=== PATIENT | female | born 1980 | race Caucasian/White ===

== ENCOUNTER 2017-01-17 12:21 | Emergency (ER) | payer OTHER ==
[2017-01-17 12:49] VITALS: BP 113/70; PULSE 76; RESP 16; TEMP 97.9; O2SAT 96
[2017-01-17] MEDS ORDERED: FAMOTIDINE 20 MG TAB PO ONE (13:02)
[2017-01-17] MEDS ORDERED: predniSONE 20 MG TAB PO ONE (13:02)
--- NOTE | 2017-01-17 13:05 | EDPHY ---
H & P Stated Complaint: Rash-hives to bilat hands Saturday, Sat and today body. Denies resp distress Time Seen by Provider: 01/17/17 12:58 HPI/ROS: CHIEF COMPLAINT: urticaria HISTORY OF PRESENT ILLNESS: The patient is a 36-year-old female who has had urticaria for the last 2 days. She is unsure of what the trigger is except that she has changed scents with her laundry detergent. No new foods or medications. She has been taking Benadryl every 4 5 hours. She states that it works in the rash completely goes away but then returned after about 2-3 hours. She is currently symptom free after taking Benadryl this morning. No fevers. No difficulty breathing. No GI symptoms. REVIEW OF SYSTEMS: Constitutional: denies: chills, fever, recent illness, recent injury EENTM: denies: blurred vision, double vision, nose congestion Respiratory: denies: cough, shortness of breath Cardiac: denies: chest pain, irregular heart rate, lightheadedness, palpitations Gastrointestinal/Abdominal: denies: abdominal pain, diarrhea, nausea, vomiting, blood streaked stools Genitourinary: denies: dysuria, frequency, hematuria, pain Musculoskeletal: denies: joint pain, muscle pain Skin: See HPI Neurological: denies: headache, numbness, paresthesia, tingling, dizziness, weakness Hematologic/Lymphatic: denies: blood clots, easy bleeding, easy bruising Immunologic/allergic: denies: HIV/AIDS, transplant EXAM: GENERAL: Well-appearing, well-nourished and in no acute distress. HEAD: Atraumatic, normocephalic. EYES: Pupils equal round and reactive to light, extraocular movements intact, sclera anicteric, conjunctiva are normal. ENT: TMs normal, nares patent, oropharynx clear without exudates. Moist mucous membranes. NECK: Normal range of motion, supple without lymphadenopathy or JVD. LUNGS: Breath sounds clear to auscultation bilaterally and equal. No wheezes rales or rhonchi. HEART: Regular rate and rhythm without murmurs, rubs or gallops. ABDOMEN: Soft, nontender, normoactive bowel sounds. No guarding, no rebound. No masses appreciated. BACK: No CVA tenderness, no spinal tenderness, step-offs or deformities EXTREMITIES: Normal range of motion, no pitting or edema. No clubbing or cyanosis. NEUROLOGICAL: Cranial nerves II through XII grossly intact. Normal speech, normal gait. 5/5 strength, normal movement in all extremities, normal sensation PSYCH: Normal mood, normal affect. SKIN: Warm, dry, normal turgor, no visible rashes or lesions. Source: Patient Exam Limitations: No limitations - Personal History LMP (Females 10-55): 15-21 Days Ago - Medical/Surgical History Hx Asthma: No Hx Chronic Respiratory Disease: No Hx Diabetes: No Hx Cardiac Disease: No Hx Renal Disease: No Hx Cirrhosis: No Hx Alcoholism: No Hx HIV/AIDS: No Hx Splenectomy or Spleen Trauma: No Other PMH: Surg-C SEC X 2, TUBAL LIGATION. Med hx-none - Family History Significant Family History: No pertinent family hx - Social History Smoking Status: Former smoker Alcohol Use: Sober Drug Use: None Constitutional: Initial Vital Signs Temperature (C) 36.6 C 01/17/17 12:45 Heart Rate 76 01/17/17 12:45 Respiratory Rate 16 01/17/17 12:45 Blood Pressure 113/70 01/17/17 12:45 O2 Sat (%) 96 01/17/17 12:45 O2 Delivery Mode Room Air Allergies/Adverse Reactions: No Known Allergies Allergy (Verified 01/17/17 12:43) Home Medications: Medication Instructions Recorded Famotidine [Pepcid 20 MG (OTC)] 20 mg PO BID #30 tab 01/17/17 predniSONE 60 mg PO DAILY #9 tab 01/17/17 Medical Decision Making ED Course/Re-evaluation: The patient has pictures on her phone of her urticaria from this morning. It resolved completely with Benadryl. I will add steroids and Pepcid. We discussed medication regimen. We also discussed follow-up with an animal husbandry professor. We discussed indications for returning to the emergency department. Differential Diagnosis: Partial list of the Differential diagnosis considered include but were not limited to; urticaria, allergic reaction and although unlikely based on the history and physical exam, I also considered anaphylaxis, cellulitis, sepsis. I discussed these differential diagnoses and the plan with the patient as well as the usual and expected course. The patient understands that the diagnosis is provisional and that in medicine we are not always correct and that further workup is often warranted. Usual and customary warnings were given. All of the patient's questions were answered. The patient was instructed to return to the emergency department should the symptoms at all worsen or return, otherwise to followup with the physician as we discussed. - Data Points Medications Given: Discontinued Medications Famotidine (Pepcid) 40 mg PO EDNOW ONE Stop: 01/17/17 13:03 Last Admin: 01/17/17 13:09 Dose: 40 mg Prednisone (Prednisone) 60 mg PO EDNOW ONE Stop: 01/17/17 13:03 Last Admin: 01/17/17 13:09 Dose: 60 mg Departure - Departure Disposition: Home, Routine, Self-Care Clinical Impression: Urticaria Condition: Fair Instructions: Urticaria (ED) Referrals: Stephane Parker MD [Medical Doctor] - As per Instructions Prescriptions: Famotidine [Pepcid 20 MG (OTC)] 20 mg PO BID #30 tab predniSONE 60 mg PO DAILY #9 tab
== END 2017-01-17 13:10 | disposition home or self-care (01) ==
LOC: CED 12:21
DX: L50.9 Urticaria, unspecified (principal); Z87.891 Personal history of nicotine dependence

== ENCOUNTER 2017-05-24 14:16 | Emergency (ER) | payer OTHER ==
--- NOTE | 2017-05-24 14:27 | CPEKG ---
Heart Rate: 65 RR Interval: 923 P-R Interval: 156 QRSD Interval: 86 QT Interval: 444 QTC Interval: 462 P [place]: 24 QRS [place]: 64 T Wave [place]: 17 EKG Severity - BORDERLINE ECG - EKG Impression: SINUS RHYTHM EKG Impression: BORDERLINE Q WAVES IN INFERIOR LEADS EKG Impression: INFERIOR Q WAVES, PROBABLY NORMAL VARIATION Electronically Signed By: Jignesh Leyva 24-May-2017 18:42:21
[2017-05-24 14:29] VITALS: RESP 18; TEMP 98.6
[2017-05-24] MEDS ORDERED: NS 500 ML IV ONE (14:33)
[2017-05-24] MEDS ORDERED: ASPIRIN 81 MG CHEWABLE TAB PO ONE (14:33)
--- NOTE | 2017-05-24 14:37 | EDPHY ---
H & P Smoking Status: Former smoker Time Seen by Provider: 05/24/17 14:33 HPI/ROS: CHIEF COMPLAINT: Chest pain HISTORY OF PRESENT ILLNESS: Patient is a 37-year-old female who presents emergency department with intermittent chest pain. Patient states her symptoms started approximately 3 weeks ago. She initially had episodes of chest pain approximately 1 today. Last few days it is happen more frequently. Today her pain has been constant since 145. She describes substernal chest pain that moved over to her left breast. She has mild shortness of breath. She has had a cough since May. She denies fevers or chills. No nausea or vomiting. No abdominal pain. No leg pain or swelling. No recent travel. The patient states her mother just underwent open heart surgery. She previous smoked but has quit. REVIEW OF SYSTEMS: My complete review of systems is negative except as mentioned in the HPI. ( Asmita Rosas) Past Medical/Surgical History: Denies Past surgical history: Negative Social history: Patient does not smoke. (Asmita Rosas) Physical Exam: Vitals noted GENERAL: Well-appearing, in no acute distress, alert. HEENT: Eyes normal to inspection, normal pharynx, no signs of dehydration. NECK: No thyromegaly, no lymphadenopathy, supple. RESPIRATORY: Clear to auscultation bilaterally, no rales, rhonchi or wheezing. CVS: Regular rate and rhythm, no rubs, murmurs, or gallops. ABDOMEN: Soft, minimal epigastric tenderness to palpation with no rebound or guarding, nondistended, no organomegaly. BACK: Normal to inspection, no CVA tenderness. SKIN: Normal color, no rash, warm, dry. No pallor. EXTREMITIES: No pedal edema, no calf tenderness, no Homans sign or cords, no joint swelling. NEURO/PSYCH: Alert and oriented, normal mood and affect, normal motor sensory exam. (Asmita Rosas) Constitutional: Initial Vital Signs Temperature (C) 37.0 C 05/24/17 14:26 Heart Rate 77 05/24/17 14:26 Respiratory Rate 18 05/24/17 14:26 Blood Pressure 123/67 H 05/24/17 14:26 O2 Sat (%) 98 05/24/17 14:26 O2 Delivery Mode Room Air Allergies/Adverse Reactions: No Known Allergies Allergy (Verified 05/24/17 14:26) Home Medications: Medication Instructions Recorded Albuterol [Proventil] 17 gm IH Q4-6PRN PRN #1 aerosol 05/24/17 Medical Decision Making - Diagnostics Imaging Results: Imaging Impressions Chest X-Ray 05/24/17 14:34 Impression: Nothing abnormal identified. Consider a routine PA and lateral chest , when the patient is clinically able. Chest/Thorax CTA 05/24/17 15:04 Impression: 1. No visible pulmonary embolus. 2. Polygonal posterior right upper lobe nodule, almost certainly benign. If the patient is a smoker or is high risk, unenhanced low dose chest CT for follow up in 12 months is considered optional. Otherwise, no further follow up is needed per Fleischner Society criteria. Findings discussed with Dr. Jignesh Leyva on 05/24/2017 at 1555. ED Course/Re-evaluation: In the emergency department I discussed possible etiologies with the patient. I answered all her questions. She was given aspirin 324 mg orally. An IV was placed. Laboratory studies, EKG and chest x-ray were obtained. Sinus rhythm at 65. Normal axis. Normal intervals. No ST or T-wave abnormalities. There are Q-waves in II, III, aVF. I compared this with the EKG by 2013. Q-waves were present at that time. 1437: A PA and lateral was ordered. However there was the malfunction in the x -ray suite. A portable was performed. Chest x-ray: No acute disease noted. The CBC showed normal white count. Patient had elevated D-dimer 0.62. Based on the elevated D-dimer CT angiogram was ordered. I discussed this with the patient answered all her questions. 1500: The patient is signed out to Dr. Leyva at change of shift. (Asmita Rosas) 4:00 p.m. we discussed the patient's CT results. She states that she feels completely well. She is nontoxic appearing. Vital signs are stable. Her lab work is also reassuring. She declines further workup or testing is eager to go home. She tells me that her chest pain and headache present only when she is having a persistent cough that she seems to have coughing fits. She does have a history of asthma. No wheezing currently. Negative CT angio of her chest. I will prescribe her albuterol inhaler to take during these coughing spells. She states that she has done this in the past. She is happy with this plan. We discussed follow-up as well as indications for returning. She has an appointment with her doctor next week. (Jignesh Leyva) Differential Diagnosis: My differential includes but is not limited to ACS, acute ID, pulmonary embolus , dissection, aneurysm, myocarditis, pericarditis, pneumonia, bronchitis, GERD, pancreatitis (Asmita Rosas) - Data Points Laboratory Results: Laboratory Results 05/24/17 14:40 05/24/17 14:40 05/24/17 05/24/17 05/24/17 14:40 14:40 14:40 WBC RBC Hgb Hct MCV MCH MCHC RDW Plt Count MPV Neut % (Auto) Lymph % (Auto) [place] % (Auto) Eos % (Auto) Baso % (Auto) Nucleat RBC Rel Count Absolute Neuts (auto) Absolute Lymphs (auto) Absolute Monos (auto) Absolute Eos (auto) Absolute Basos (auto) Absolute Nucleated RBC Immature Gran % Immature Gran # D-Dimer 0.62 ug/mLFEU H ug/mLFEU (0.00-0.50) Sodium 141 mEq/L mEq/L (134-144) Potassium 4.0 mEq/L mEq/L (3.5-5.2) Chloride 105 mEq/L mEq/L (97-110) Carbon Dioxide 21 mEq/l L mEq/l (22-31) Anion Gap 15 mEq/L mEq/L (8-16) BUN 12 mg/dL mg/dL (7-23) Creatinine 1.0 mg/dL mg/dL (0.6-1.0) Estimated GFR > 60 Glucose 90 mg/dL mg/dL (70-100) Calcium 8.9 mg/dL mg/dL (8.5-10.4) Total Bilirubin 0.8 mg/dL mg/dL (0.1-1.4) Conjugated Bilirubin 0.5 mg/dL mg/dL (0.0-0.5) Unconjugated Bilirubin 0.3 mg/dL mg/dL (0.0-1.1) AST 22 IU/L IU/L (14-46) ALT 43 IU/L IU/L (9-52) Alkaline Phosphatase 58 IU/L IU/L (38-126) Troponin I < 0.012 ng/mL ng/mL (0.000-0.034) Total Protein 7.3 g/dL g/dL (6.3-8.2) Albumin 4.4 g/dL g/dL (3.5-5.0) Lipase 205 IU/L IU/L (23-300) Beta HCG, Qual NEGATIVE 05/24/17 14:40 WBC 9.08 10^3/uL 10^3/uL (3.80-9.50) RBC 4.61 10^6/uL 10^6/uL (4.18-5.33) Hgb 13.3 g/dL g/dL (12.6-16.3) Hct 38.7 % % (38.0-47.0) MCV 83.9 fL fL (81.5-99.8) MCH 28.9 pg pg (27.9-34.1) MCHC 34.4 g/dL g/dL (32.4-36.7) RDW 13.4 % % (11.5-15.2) Plt Count 243 10^3/uL 10^3/uL (150-400) MPV 10.7 fL fL (8.7-11.7) Neut % (Auto) 55.3 % % (39.3-74.2) Lymph % (Auto) 36.9 % % (15.0-45.0) [place] % (Auto) 4.4 % L % (4.5-13.0) Eos % (Auto) 2.4 % % (0.6-7.6) Baso % (Auto) 0.8 % % (0.3-1.7) Nucleat RBC Rel Count 0.0 % % (0.0-0.2) Absolute Neuts (auto) 5.02 10^3/uL 10^3/uL (1.70-6.50) Absolute Lymphs (auto) 3.35 10^3/uL H 10^3/uL (1.00-3.00) Absolute Monos (auto) 0.40 10^3/uL 10^3/uL (0.30-0.80) Absolute Eos (auto) 0.22 10^3/uL 10^3/uL (0.03-0.40) Absolute Basos (auto) 0.07 10^3/uL 10^3/uL (0.02-0.10) Absolute Nucleated RBC 0.00 10^3/uL 10^3/uL (0-0.01) Immature Gran % 0.2 % % (0.0-1.1) Immature Gran # 0.02 10^3/uL 10^3/uL (0.00-0.10) D-Dimer Sodium Potassium Chloride Carbon Dioxide Anion Gap BUN Creatinine Estimated GFR Glucose Calcium Total Bilirubin Conjugated Bilirubin Unconjugated Bilirubin AST ALT Alkaline Phosphatase Troponin I Total Protein Albumin Lipase Beta HCG, Qual Medications Given: Discontinued Medications Aspirin (Aspirin) 324 mg PO EDNOW ONE Stop: 05/24/17 14:34 Last Admin: 05/24/17 14:45 Dose: 324 mg Sodium Chloride (Ns) 500 mls @ 1,000 mls/hr IV EDNOW ONE PRN Reason: Protocol Stop: 05/24/17 15:02 Last Admin: 05/24/17 14:44 Dose: 500 mls Departure - Departure Disposition: Home, Routine, Self-Care Clinical Impression: Cough in adult Chest pain Qualifiers: Chest pain type: precordial pain Qualified Code(s): R07.2 - Precordial pain Condition: Good Instructions: Chest Pain (ED), Acute Cough (ED) Additional Instructions: Return with increasing chest pain, shortness of breath or any other concerns. Referrals: [facility] [Provider Group] - 2-3 days without fail Prescriptions: Albuterol [Proventil] 17 gm IH Q4-6PRN PRN #1 aerosol PRN Reason: Cough, Moderate
[2017-05-24 14:42] LABS: % IMMATURE GRANULYOCYTES 0.2 % (0.0-1.1); ABSOLUTE IMMATURE GRANULOCYTES 0.02 10^3/uL (0.00-0.10); ADD DIFF? NO; ADD MORPH? NO; ADD SCAN? NO; ATYPICAL LYMPHOCYTE FLAG 10 (0-99); FRAGMENT RBC FLAG 0 (0-99); HEMATOCRIT 38.7 % (38.0-47.0); HEMOGLOBIN 13.3 g/dL (12.6-16.3); LEFT SHIFT FLG 0 (0-99); LIPEMIA HEMOLYSIS FLAG 90 (0-99); MEAN CELL HEMOGLOBIN 28.9 pg (27.9-34.1); MEAN CELL HEMOGLOBIN CONCENTR. 34.4 g/dL (32.4-36.7); MEAN CELL VOLUME 83.9 fL (81.5-99.8); MEAN PLATELET VOLUME 10.7 fL (8.7-11.7); PLATELET CLUMPS FLAG 0 (0-99); PLATELET COUNT 243 10^3/uL (150-400); RED BLOOD CELL COUNT 4.61 10^6/uL (4.18-5.33); RED CELL DISTRIBUTION WIDTH 13.4 % (11.5-15.2)
[2017-05-24 14:58] LABS: ALANINE AMINOTRANSFERASE 43 IU/L (9-52); ALBUMIN 4.4 g/dL (3.5-5.0); ALKALINE PHOSPHATASE 58 IU/L (38-126); ANION GAP 15 mEq/L (8-16); ASPARTATE AMINOTRANSFERASE 22 IU/L (14-46); BILIRUBIN,TOTAL 0.8 mg/dL (0.1-1.4); BILIRUBIN-CONJUGATED 0.5 mg/dL (0.0-0.5); BILIRUBIN-UNCONJUGATED 0.3 mg/dL (0.0-1.1); CALCIUM 8.9 mg/dL (8.5-10.4); CARBON DIOXIDE 21 mEq/l (22-31); CHLORIDE 105 mEq/L (97-110); GLOMERULAR FILTRATION RATE > 60; GLUCOSE 90 mg/dL (70-100); SODIUM 141 mEq/L (134-144); TOTAL PROTEIN 7.3 g/dL (6.3-8.2)
[2017-05-24 15:10] LABS: TROPONIN I < 0.012 ng/mL (0.000-0.034)
[2017-05-24] MEDS ORDERED: IOPAMIDOL (ISOVUE 370) 100 ML BTL IV ONE (15:22)
[2017-05-24 15:24] VITALS: PULSE 75
[2017-05-24 19:25] VITALS: BP 124/72; O2SAT 96
== END 2017-05-24 16:11 | disposition home or self-care (01) ==
LOC: CED 14:16
DX: R07.2 Precordial pain (principal); R05 Cough; E86.9 Volume depletion, unspecified; Z87.891 Personal history of nicotine dependence
CPT/HCPCS: 71010-PO; 71275-PO; 80048-PO; 80076-PO; 83690-PO; 84484-PO; 84703-PO; 85025-PO; 85378-PO; Q9967

== ENCOUNTER → 2017-11-04 | Outpatient (CLI) | payer OTHER | LOC: BRMIMAGING 08:55 | PROVIDERS: ATTEND Family Medicine | DX: N64.4 Mastodynia (principal) | CPT/HCPCS: 76641-PO ==

== ENCOUNTER 2018-03-04 15:50 | Emergency (ER) | payer OTHER ==
[2018-03-04 15:59] VITALS: BP 123/77
[2018-03-04] MEDS ORDERED: IBUPROFEN 600 MG TAB PO ONE (16:13)
--- NOTE | 2018-03-04 16:19 | EDPHY ---
H & P Time Seen by Provider: 03/04/18 15:58 HPI/ROS: This patient complains of an achy lump to her left neck posterior to the sternocleidomastoid muscle. She noticed this over the past 24 hr. She describes it as achy in nature. She has not taken any medication for the pain. She notes no exacerbating factors. She has associated skin lesions to the posterior neck for about the past 6 months or so she estimates. She reports that the skin lesions are slightly burning and itching at times. She does not think they have changed much over the past week or 2. She came in by private car for evaluation. She is concerned about potential cancer because she was noted to have had a lump in the left breast on mammogram and ultrasound with scheduled recheck in 3 months and also a calcified right upper lung nodule on chest CT with scheduled recheck 1 year after the initial study that was performed on 05/24/2017. ROS: Constitutional: No fevers or chills. No fatigue. No other complaints HEENT: No sore throat. No ear pain. No change in her voice. No other complaints Neuro: No headache numbness or tingling Pulmonary: No shortness of breath or chest pain Cardiovascular: No lightheadedness Lymph: No lumps elsewhere on her body besides the breast in the neck. Integumentary: No skin rash or lesions other than the posterior neck as mentioned in HPI. 10 point ROS is otherwise negative Past Medical/Surgical History: Breast lump and lung calcification as per HPI. Otherwise healthy Smoking Status: Former smoker Physical Exam: General Appearance: Alert, no distress. Eyes: Pupils equal and round no pallor or injection. ENT, Mouth: Mucous membranes moist. Oropharynx is clear. Ears: Clear bilaterally Neck: Patient has swelling posterior to the left sternocleidomastoid muscle approximately 1.5 cm mobile non fluctuant no overlying erythema or warmth to touch Respiratory: There are no retractions, lungs are clear to auscultation. Cardiovascular: Regular rate and rhythm. No murmur gallop or rub Gastrointestinal: Abdomen is soft and nontender, no masses, bowel sounds normal. Neurological: GCS 15. No focal deficits are appreciated Skin: Warm and dry, the patient has 2 round erythematous lesions with desquamation superficially left more than right posterior neck 1.5 cm in diameter. No other skin lesions are noted. Musculoskeletal: Neck is supple nontender. Extremities are symmetrical, full range of motion. Psychiatric: Mood and affect normal DIFFERENTIAL DIAGNOSIS: After history and physical exam differential diagnosis was considered for tinea corpus, eczema, contact dermatitis a posterior neck, likely regional lymphadenopathy in response to tinea corporis. Doubt lymphoma, doubt brachial cleft cyst, abscess or other Constitutional: Initial Vital Signs Temperature (C) 37.1 C 03/04/18 15:55 Heart Rate 90 03/04/18 15:55 Respiratory Rate 16 03/04/18 15:55 Blood Pressure 123/77 H 03/04/18 15:55 O2 Sat (%) 97 03/04/18 15:55 O2 Delivery Mode Room Air Allergies/Adverse Reactions: No Known Allergies Allergy (Verified 03/04/18 15:59) Home Medications: Medication Instructions Recorded Albuterol [Proventil] 17 gm IH Q4-6PRN PRN #1 aerosol 05/24/17 MDM/Departure - MDM Medications Given: Discontinued Medications Ibuprofen (Motrin) 600 mg PO EDNOW ONE Stop: 03/04/18 16:14 Last Admin: 03/04/18 16:33 Dose: 600 mg ED Course/Re-evaluation: Ibuprofen p.o. Phlebotomy for CBC Patient's CBC is normal. I reviewed patient's normal CBC results and my clinical impression of tinea corporis causing posterior cervical lymphadenopathy. I explained the physiology behind this suggested a course of Lotrimin Ultra twice daily for the next few weeks for the tinea corporis and ibuprofen and Tylenol for the lymphadenopathy. She will follow up with primary care physician for any ongoing symptoms. She understands the need to return for any significant worsening of symptoms to the emergency department. - Depart Disposition: Home, Routine, Self-Care Clinical Impression: Posterior cervical lymphadenopathy, Tinea corporis Condition: Good Instructions: Tinea Corporis (ED), Lymphadenopathy (ED) Additional Instructions: Diagnosis: 1. Posterior cervical lymphadenopathy 2. Tinea corporis ("ring-worm ") on posterior neck Or swollen lymph node is likely attributable to the tinea corporis. Plan: Ibuprofen for discomfort if needed Tylenol in addition if needed. Do not exceed 600 mg per 6 hr of the ibuprofen and do not exceed 3000 mg in 24 hr of the Tylenol. This pickup Lotrimin Ultra antifungal cream from the pharmacy [id number] and apply this 2 times a day until the rash in the back of her neck resolved. It may improve within a few days but may take up to 3 weeks of steady application before it clears. Follow-up with primary care physician for any ongoing symptoms Return emergency department for any significant worsening despite treatment plan. Referrals: Chris Jones DO [Primary Care Provider] - As per Instructions
== END 2018-03-04 17:06 | disposition home or self-care (01) ==
LOC: CED 15:50
DX: R59.1 Generalized enlarged lymph nodes (principal); B35.4 Tinea corporis; Z87.891 Personal history of nicotine dependence

== ENCOUNTER → 2018-05-30 | Outpatient (CLI) | payer OTHER | LOC: CIMAGING 13:06 | PROVIDERS: ATTEND Family Medicine | DX: R05 Cough (principal); R92.8 Other abnormal and inconclusive findings on diagnostic imaging of breast | CPT/HCPCS: 71046-PO ==

== ENCOUNTER → 2018-11-04 | Outpatient (CLI) | payer OTHER | LOC: CIMAGING 10:43 | PROVIDERS: ATTEND Family Medicine | DX: R05 Cough (principal) | CPT/HCPCS: 71046-PO ==

== ENCOUNTER 2018-11-10 08:22 | Day surgery (SDC) | payer OTHER ==
[2018-11-10] MEDS ORDERED: fentaNYL 100 MCG/2 ML INJ IVP ONE ×2 (08:54→10:26)
[2018-11-10] MEDS ORDERED: NS 1,000 ML IV ONE (08:54)
[2018-11-10] MEDS ORDERED: IOPAMIDOL (ISOVUE-300) 100 ML BTL ONE (09:04)
--- NOTE | 2018-11-10 09:04 | EDPHY ---
H & P Time Seen by Provider: 11/10/18 08:24 HPI/ROS: CHIEF COMPLAINT: Abdominal pain HISTORY OF PRESENT ILLNESS: Patient states last night around 6:00 p.m. She had a relatively sudden onset of right-sided abdominal pain. She describes it initially as in the lower abdomen but now radiates to the back and the groin. She states the pain has been sharp, "really bad", constant. She has not had anything quite like this. She denies nausea, vomiting, diarrhea or constipation. She has had no fevers or chills. She was recently treated for strep throat and is still on penicillin. This was started last Saturday. She states her sore throat is better although some discomfort with swallowing. She denies dysuria, hematuria, vaginal discharge. REVIEW OF SYSTEMS: Constitutional: No fever, no chills. Eyes: No discharge. ENT: Per HPI Cardiovascular: No chest pain, no palpitations. Respiratory: No cough, no shortness of breath. Gastrointestinal: Per HPI Genitourinary: No dysuria. Musculoskeletal: No back pain. Skin: No rashes. Neurological: No headache. General Appearance: Alert, no distress. Eyes: Pupils equal and round no pallor or injection. ENT, Mouth: Mucous membranes moist. No exudates, no lymphadenopathy. Respiratory: There are no retractions, lungs are clear to auscultation. Cardiovascular: Regular rate and rhythm. Gastrointestinal: Abdomen is soft, with tenderness diffusely to the right side and some voluntary guarding with right lower quadrant palpation. Hypoactive bowel sounds. No masses or distension. Neurological: Awake, alert, cranial nerves intact, no focal neurologic deficits. Skin: Warm and dry, no rashes. Musculoskeletal: Neck is supple nontender. Extremities are symmetrical, full range of motion, no edema. Psychiatric: Patient is oriented X 3, there is no agitation. Medical/surgical history: x2, tubal ligation. Recent strep pharyngitis on penicillin. Social history: Former smoker, no drugs or alcohol. Smoking Status: Former smoker Constitutional: Initial Vital Signs Temperature (C) 36.4 C 11/10/18 08:29 Heart Rate 78 11/10/18 08:29 Respiratory Rate 16 11/10/18 08:29 Blood Pressure 124/75 H 11/10/18 08:29 O2 Sat (%) 95 11/10/18 08:29 O2 Delivery Mode Room Air Allergies/Adverse Reactions: No Known Allergies Allergy (Verified 11/10/18 08:28) Home Medications: Medication Instructions Recorded Penicillin VK 11/10/18 Medical Decision Making - Diagnostics Imaging Results: Imaging Impressions Abdomen CT 11/10/18 08:55 Impression: 1. Acute appendicitis with no visible abscess. 2. Mild hepatomegaly. 3. Borderline splenomegaly. 4. Trace left effusion. 5. Additional findings as above. Findings discussed with Vicki Lao MD 11/10/2018 at 10:06. ED Course/Re-evaluation: 10:[address] report demonstrates appendicitis, 15 mm, no abscess or free air. Discussed with patient, re-evaluation, states pain 10. Agrees for transfer and admission for likely operative intervention. 10:15 am discussed with Merlyn, for Dr. Vee who was scrubbed in in the OR. Accepted for transfer and will be taken directly to preop. Differential Diagnosis: Differential diagnosis includes but is not limited to kidney stone, appendicitis , cholecystitis, urinary tract infection. After evaluation including labs and CT scan of the abdomen and pelvis appendicitis is found. No evidence of free air, abscess, hemodynamic instability. Laboratory evaluation unremarkable and vital signs within normal limits. Discussed with Dr. Vee via ZENAIDA Zuleta. Patient accepted for transfer. Patient will be kept NPO, antibiotics given. Transfer forms completed. Stable time of transfer. - Data Points Laboratory Results: 11/10/18 09:14 POC Sodium 142 mEq/L mEq/L (135-145) POC Potassium 3.6 mEq/L mEq/L (3.3-5.0) POC Chloride 107.0 mEq/L mEq/L (97-110) POC Total CO2 23 mEq/L mEq/L (22-31) POC BUN 8 mg/dL mg/dL (7-23) POC Creatinine 0.8 mg/dL mg/dL (0.6-1.0) POC Glucose 105 mg/dL H mg/dL (70-100) POC Calcium 9.1 mg/dL mg/dL (8.5-10.4) POC Total Bilirubin 0.8 mg/dL mg/dL (0.1-1.4) POC AST 22 IU/L IU/L (14-46) POC ALT 14 IU/L IU/L (9-52) POC Alk Phosphatase 54 IU/L IU/L (38-126) POC Total Protein 7.2 g/dL g/dL (6.3-8.2) POC Albumin 3.6 g/dL g/dL (3.5-5.0) Medications Given: Hydromorphone HCl (Dilaudid) 0.5 mg IVP Q4HRS PRN PRN Reason: Pain, Severe Unable to Take PO Stop: 11/20/18 10:57 Last Admin: 11/10/18 11:08 Dose: 0.5 mg Discontinued Medications Fentanyl (Sublimaze) 50 mcg IVP EDNOW ONE Stop: 11/10/18 08:55 Last Admin: 11/10/18 09:13 Dose: 50 mcg Fentanyl (Sublimaze) 50 mcg IVP EDNOW ONE Stop: 11/10/18 10:27 Last Admin: 11/10/18 10:27 Dose: 50 mcg Sodium Chloride (Ns) 1,000 mls @ 0 mls/hr IV EDNOW ONE; Wide Open PRN Reason: Protocol Stop: 11/10/18 08:55 Last Admin: 11/10/18 09:12 Dose: 1,000 mls Piperacillin Sod/Tazobactam (Sod 3.375 gm/ Sodium Chloride) 100 mls @ 200 mls/ hr IV EDNOW ONE PRN Reason: Protocol Stop: 11/10/18 10:39 Last Admin: 11/10/18 10:33 Dose: 100 mls Point of Care Test Results: CBC CBC Collection Date 11/10/18 CBC Collection Time 09:05 WBC 8.33 RBC 4.53 HGB 13.3 HCT 38.7 PLT 215 Neut # 5.7 Neut 68.5 LYMPH # 2.0 LYMPH 24.0 MCV 85.4 Chemistry 11/10/18 09:14 POC Sodium 142 mEq/L mEq/L (135-145) POC Potassium 3.6 mEq/L mEq/L (3.3-5.0) POC Chloride 107.0 mEq/L mEq/L (97-110) POC Total CO2 23 mEq/L mEq/L (22-31) POC BUN 8 mg/dL mg/dL (7-23) POC Creatinine 0.8 mg/dL mg/dL (0.6-1.0) POC Glucose 105 mg/dL H mg/dL (70-100) POC Calcium 9.1 mg/dL mg/dL (8.5-10.4) POC Total Bilirubin 0.8 mg/dL mg/dL (0.1-1.4) POC AST 22 IU/L IU/L (14-46) POC ALT 14 IU/L IU/L (9-52) POC Alk Phosphatase 54 IU/L IU/L (38-126) POC Total Protein 7.2 g/dL g/dL (6.3-8.2) POC Albumin 3.6 g/dL g/dL (3.5-5.0) Urine Collection Date 11/10/18 Collection Time 08:35 HCG Results Negative Urine Dip Collection Date 11/10/18 Collection Time 08:35 Specific [place] (1.002-1.030) 1.030 PH (5.0-7.5) 5.5 Leukocytes (Negative) Negative Nitrites (Negative) Negative Protein (Negative) Negative Glucose (Negative) Negative Ketones (Negative) Negative Urobilnogen (0.2-1.0 EU) 0.2 Bilirubin (Negative) Negative Blood (Negative) Negative Departure - Departure Disposition: To OP Cath/Surgery Clinical Impression: Acute appendicitis Condition: Fair
[2018-11-10] MEDS ORDERED: PIPERACILLIN SODIUM/TAZOBACTAM 3.375 GM in NS 100 ML IV ONE (10:10)
[2018-11-10] MEDS ORDERED: fentaNYL 100 MCG/2 ML INJ ONE ×4 (10:21→13:53)
[2018-11-10] MEDS ORDERED: HYDROmorphONE/DILAUDID 1 MG/ML INJ IVP PRN (10:58)
[2018-11-10] MEDS ORDERED: HYDROmorphONE/DILAUDID 1 MG/ML INJ ONE (11:01)
[2018-11-10] MEDS ORDERED: BUPIVACAINE 0.25% 30 ML SDV ONE (11:49)
--- NOTE | 2018-11-10 12:03 | PDANEPAE ---
ANE History of Present Illness here for lap merry MIKAYLA Past Medical History - Cardiovascular History Hx Hypertension: No Hx Arrhythmias: No Hx Chest Pain: No Hx Coronary Artery / Peripheral Vascular Disease: No Hx CHF / Valvular Disease: No Hx Palpitations: No - Pulmonary History Hx COPD: No Hx Asthma/Reactive Airway Disease: No Hx Recent Upper Respiratory Infection: No Hx Oxygen in Use at Home: No Hx Sleep Apnea: No - Endocrine History Hx Diabetes: No Hypothyroid: No Hyperthyroid: No - Renal History Hx Renal Disorders: No - Liver History Hx Hepatic Disorders: No - Neurological & Psychiatric Hx Hx Neurological and Psychiatric Disorders: No - Cancer History Hx Cancer: No ANE Review of Systems Review of systems is: negative Review of Systems: - Exercise capacity Exercise capacity: >=4 METS ANE Patient History - Allergies Allergies/Adverse Reactions: No Known Allergies Allergy (Verified 11/10/18 08:28) - Home Medications Home medications: home medication list seen and reviewed Home Medications: Penicillin VK 11/10/18 [Last Taken Unknown] - NPO status NPO Status: no food or drink >8 hours NPO Since - Liquids (Date): 11/09/18 NPO Since - Liquids (Time): 22:30 NPO Since - Solids (Date): 11/09/18 NPO Since - Solids (Time): 22:30 - Anes Hx Anes Hx: no prior problems - Smoking Hx Smoking Status: Former smoker ANE Labs/Vital Signs - Vital Signs Vital Signs: reviewed preoperatively; see RN documention for details Blood Pressure: 114/81 Heart Rate: 75 Respiratory Rate: 18 O2 Sat (%): 98 Height: 173.99 cm Weight: 113.398 kg ANE Physical Exam - Airway Neck exam: FROM Mallampati Score: Class 1 - Pulmonary Pulmonary: no respiratory distress - Cardiovascular Cardiovascular: regular rate and rhythym - ASA Status ASA Status: II ANE Anesthesia Plan Anesthesia Plan: general endotracheal anesthesia
[2018-11-10] MEDS ORDERED: MIDAZOLAM 2 MG/2 ML VIAL IVP ONE (12:12)
[2018-11-10] MEDS ORDERED: ONDANSETRON 4 MG/2 ML VIAL IVP PRN (12:12)
[2018-11-10] MEDS ORDERED: MEPERIDINE 25 MG/0.5 ML AMP IVP PRN (12:12)
[2018-11-10] MEDS ORDERED: ALBUTEROL 3 ML DEYVIAL IH PRN (12:12)
[2018-11-10] MEDS ORDERED: DEXAMETHASONE 4 MG/ML VIAL IVP PRN (12:12)
[2018-11-10] MEDS ORDERED: NALOXONE HCL 0.4 MG/ML INJ IVP PRN (12:12)
[2018-11-10] MEDS ORDERED: PROMETHAZINE HCL 25 MG/ML INJ IVP PRN (12:12)
--- NOTE | 2018-11-10 12:14 | PDGENHP ---
History and Physical - Chief Complaint abd pain - History of Present Illness 38 y/o female with one day hx abd pain localizing to the RLQ. She was seen at [facility] [place] by Dr. Lao and a CT was performed which showed acute appendicitis. Surgical consultation was requested History Information - Allergies/Home Medication List Allergies/Adverse Reactions: No Known Allergies Allergy (Verified 11/10/18 08:28) Home Medications: Penicillin VK 11/10/18 [Last Taken Unknown] I have personally reviewed and updated: family history - Surgical History Additional surgical history: x 2 - Social History Smoking Status: Former smoker Alcohol Use: Rarely Drug Use: None Additional social history: with 2 young children Review of Systems Review of Systems: Constitutional: Reports: recent illness Cardiac: Reports: no symptoms Gastrointestinal: Reports: abdominal pain, abdominal distention, constipation Genitourinary: Reports: no symptoms Muscolosketal: Reports: no symptoms Physical Exam Physical Exam: Temp Pulse Resp BP Pulse Ox 37.0 C 75 18 114/81 H 98 11/10/18 11:18 11/10/18 12:03 11/10/18 12:03 11/10/18 12:03 11/10/18 12:03 Constitutional: no apparent distress, obese Eyes: PERRL, anicteric sclera Cardiovascular: regular rate and rhythym Peripheral Pulses: 2+: dorsalis-pedis (R), dorsalis-pedis (L) Respiratory: no rales or rhonchi, clear to auscultation Gastrointestinal: tenderness (RLQ with guarding) Genitourinary: no bladder fullness Skin: warm Neurologic: AAOx3 Psychiatric: interacting appropriately, not anxious Lymph, Heme, Immunologic: no cervical LAD, no supraclavicular LAD Lab Data & Imaging Review POC Sodium 142 mEq/L (135-145) 11/10/18 09:14 POC Potassium 3.6 mEq/L (3.3-5.0) 11/10/18 09:14 POC Chloride 107.0 mEq/L (97-110) 11/10/18 09:14 POC Total CO2 23 mEq/L (22-31) 11/10/18 09:14 POC BUN 8 mg/dL (7-23) 11/10/18 09:14 POC Creatinine 0.8 mg/dL (0.6-1.0) 11/10/18 09:14 POC Glucose 105 mg/dL (70-100) H 11/10/18 09:14 POC Calcium 9.1 mg/dL (8.5-10.4) 11/10/18 09:14 POC Total Bilirubin 0.8 mg/dL (0.1-1.4) 11/10/18 09:14 POC AST 22 IU/L (14-46) 11/10/18 09:14 POC ALT 14 IU/L (9-52) 11/10/18 09:14 POC Alk Phosphatase 54 IU/L (38-126) 11/10/18 09:14 POC Total Protein 7.2 g/dL (6.3-8.2) 11/10/18 09:14 POC Albumin 3.6 g/dL (3.5-5.0) 11/10/18 09:14 Interpretation: dilated appendix up to 15 mm/periappendiceal inflammation Assessment & Plan Assessment: Acute appendicitis (Acute) Plan: Maeve has acute appendicitis and I recommended laparoscopic appendectomy. We discussed the procedure, expected recovery and risks. Informed consent was obtained. She received 3 gms of Unasyn at [facility] [place]
[2018-11-10] MEDS ORDERED: ROCURONIUM 100 MG/10 ML VIAL ONE (12:16)
[2018-11-10] MEDS ORDERED: PROPOFOL/EMULSION 500 MG/50 ML BOTTLE IV ONE (12:16)
[2018-11-10] MEDS ORDERED: ONDANSETRON 4 MG/2 ML VIAL ONE (12:39)
[2018-11-10] MEDS ORDERED: DEXAMETHASONE 4 MG/ML VIAL ONE (12:39)
[2018-11-10] MEDS ORDERED: GLYCOPYRROLATE 0.2 MG/1 ML VIAL ONE (12:45)
[2018-11-10] MEDS ORDERED: SUGAMMADEX SODIUM 200 MG/2 ML VIAL IVP ONE (13:23)
[2018-11-10] MEDS ORDERED: HYDROmorphONE/DILAUDID 2 MG/ML INJ ONE (13:53)
[2018-11-10] MEDS: HYDROmorphONE/DILAUDID 2 MG/ML INJ IVP PRN ×2 (13:54→14:14)
[2018-11-10] MEDS: fentaNYL 100 MCG/2 ML INJ IVP PRN ×2 (13:57→14:03)
--- NOTE | 2018-11-10 13:58 | POSTOPPROG ---
Post Op Note Date of Operation: 11/10/18 Surgeon: Johny Vee (, FACS) Anesthesiologist: Ck Kraus MD Anesthesia: GET(General Endotracheal) Pre-op Diagnosis: appendicitis Post-op Diagnosis: adhesions/appendicitis Procedure: lap lysis of adhesions/lap appendectomy Findings: midline adhesions/ Inf/Abcess present in the surg proc area at time of surgery?: Yes Depth: Organ Space (50 ml) Bowel Protocol: N/A Clean Closure Performed: N/A Specimen(s): appendix
[2018-11-10] MEDS ORDERED: HYDROCODONE/APAP 5/325 TAB PO PRN (13:59)
[2018-11-10] MEDS ORDERED: IBUPROFEN 600 MG TAB PO SCH (14:00)
[2018-11-10] MEDS ORDERED: AMPICILLIN/SULBACTAM 3 GM in NS 100 ML IV ONE (15:00)
[2018-11-10] MEDS ORDERED: IBUPROFEN 200 MG TAB PO ONE ×2 (15:09→15:12)
--- NOTE | 2018-11-10 15:34 | GOP ---
[f rep st] OPERATIVE REPORT DATE OF OPERATION: SURGEON: Johny Vee MD, FACS ANESTHESIA: General endotracheal. ANESTHESIOLOGIST: Ck Kraus MD. PREOPERATIVE DIAGNOSIS: Acute appendicitis. POSTOPERATIVE DIAGNOSIS: 1. Intraabdominal adhesions from prior section. 2. Acute appendicitis. PROCEDURE PERFORMED: 1. Laparoscopic lysis of adhesions. 2. Laparoscopic appendectomy. FINDINGS: Patient presented with a 1-day history of abdominal pain. Findings confirmed appendicitis on CT. She had 2 prior C-sections and came to the operating room, with a BMI of 37. She received 1 dose of piperacillin/ tazobactam at [facility] before transport. ESTIMATED BLOOD LOSS: 50 mL. DESCRIPTION OF PROCEDURE: The abdomen was prepped and draped in the usual sterile fashion. Before proceeding, a time-out and identification of the patient was performed. 0.25% Marcaine was used to infiltrate the infraumbilical skin. A longitudinal incision was made through the base of the umbilicus and carried through the skin and subcutaneous tissues. Ventral traction was applied to the abdominal wall and a Veress needle was introduced into the peritoneal cavity. Position was confirmed by saline infusion and a pneumoperitoneum established with CO2 gas to a pressure of 15 mmHg. The Veress needle was withdrawn and replaced with a 5 mm bladeless trocar. A 30 degree 5 mm scope was introduced and the peritoneal cavity was visualized. Patient had central adhesions just below the level of the umbilicus; however, the scope could be passed in either direction around these adhesions. A 5 second 5 mm port was placed below the adhesions in the lower abdominal wall under direct visualization and a left lower quadrant 12 mm port was placed under direct visualization. This allowed introduction of atraumatic forceps and a Harmonic Scalpel, which were used to take down the adhesions to the anterior abdominal wall. Subsequently, the cecum was rotated medially. The appendix was identified and noted to be moderately inflamed and quite thickened at the tip. The mesoappendix was taken down with the Harmonic Scalpel. Appendix was from the cecum with a single firing of the ELIJAH stapler and it was retrieved through the left lower quadrant port site using an Endopouch. The operative field was oozing blood, both from where the adhesiolysis had been performed and the staple line on the cecum, and I performed irrigation to observe the area for surgical bleeding. Bleeding eventually stopped and was minimal, perhaps 50 mL in total. The operative field having been deemed hemostatic, the left lower quadrant port site was closed with a transfascial closure needle and 0 Vicryl suture. Subsequently, the pneumoperitoneum was evacuated and all other ports were removed. Subcutaneous tissues were approximated with 3-0 Monocryl suture. Skin was closed with 4-0 Monocryl suture in a subcuticular fashion. Topical Dermabond was applied. Patient was returned to the recovery room, extubated in satisfactory condition. COUNTS: Needle, sponge, and instrument count correct. COMPLICATIONS: None. /[id number]/MODL MTDD
[2018-11-10 18:06] VITALS: BP 138/83
--- NOTE | 2018-11-11 09:57 | POSTANESTH ---
Post Anesthetic Evaluation Cardiovascular Status: Normal, Stable Respiratory Status: Normal, Stable Level of Consciousness/Mental Status: Can Participate in Eval Pain Control: Adequate, Prn Tx Ordered Nausea/Vomiting Control: Adequate, Prn Tx Ordered Complications Possibly Related to Anesthesia: None Noted
== END 2018-11-10 17:55 | disposition home or self-care (01) ==
LOC: CED 08:22 → FSGY 10:15 → UNDOADMOB 10:15 → CEDHOLD 10:15 → FSGY 17:55 → UNDODISOB 17:55
PROVIDERS: ATTEND Surgery
DX: K35.80 Unspecified acute appendicitis (principal)
CPT/HCPCS: 74177-PO; 80053-ER; J0295; J1100; J1170; J2405; J2543; J2704; J3010; Q9967